=== PATIENT | male | born 1960 | race Two or more races ===

== ENCOUNTER → 2017-12-14 | Outpatient (CLI) | payer MEDICAID | END | disposition home or self-care (01) | LOC: CARD 08:46 | PROVIDERS: ATTEND Nurse Practitioner Family | DX: I10 Essential (primary) hypertension (principal); E11.8 Type 2 diabetes mellitus with unspecified complications; E78.2 Mixed hyperlipidemia; R00.0 Tachycardia, unspecified; R94.31 Abnormal electrocardiogram [ECG] [EKG] | CPT/HCPCS: 93017; 93350 ==